=== PATIENT | female | born 1980 | race Caucasian/White ===

== ENCOUNTER 2022-12-25 16:30 | Outpatient (RCR) | payer OTHER, SELFPAY | END 2022-12-26 08:09 | disposition home or self-care (01) | PROVIDERS: PCP Family Medicine; Visit Provider Family Medicine | DX: M54.42 Lumbago with sciatica, left side (principal); M54.16 Radiculopathy, lumbar region; Z51.89 Encounter for other specified aftercare | CPT/HCPCS: 97110; 97112; 97140; 97162 ==

== ENCOUNTER 2023-04-14 09:45 | Outpatient (RCR) | payer OTHER, SELFPAY | END 2023-06-30 09:00 | disposition home or self-care (01) | PROVIDERS: PCP Family Medicine; Visit Provider Podiatrist Foot & Ankle Surgery | DX: M79.672 Pain in left foot (principal); M25.572 Pain in left ankle and joints of left foot; M25.672 Stiffness of left ankle, not elsewhere classified; M62.81 Muscle weakness (generalized); Z51.89 Encounter for other specified aftercare | CPT/HCPCS: 97110; 97116; 97162; 97530 ==